=== PATIENT | female | born 1965 | race Caucasian/White ===

== ENCOUNTER 2016-09-02 12:36 | Outpatient (CLI) | payer OTHER | END 2016-09-02 12:37 | disposition home or self-care (01) | DX: Z12.31 Encounter for screening mammogram for malignant neoplasm of breast (principal) ==

== ENCOUNTER 2020-03-19 12:06 | Outpatient (CLI) | payer OTHER ==
[2020-03-19] MEDS ORDERED: ALBUTEROL 1 PUFF INH STA (15:10)
== END 2020-03-19 12:07 | disposition home or self-care (01) ==
LOC: RT 12:06
PROVIDERS: ATTEND Internal Medicine
DX: J45.909 Unspecified asthma, uncomplicated (principal)
CPT/HCPCS: 94060